=== PATIENT | female | born 1970 | race African-American/Black ===

== ENCOUNTER 2021-04-23 13:24 | Inpatient (IN) | payer BC, MEDICAID ==
[~2021-04-23] VITALS: Ht 162 cm; Wt 84.9 kg
[2021-04-23 13:55] VITALS: BP 130/74
[2021-04-23] MEDS: KETOROLAC 30MG/ML VIAL IV PRN (16:22)
[2021-04-23] MEDS ORDERED: ACETAMINOPHEN 325MG TABLET PO PRN (17:45)
[2021-04-23] MEDS ORDERED: ACETAMINOPHEN 650MG SUPP PR PRN (17:45)
[2021-04-23] MEDS ORDERED: TRAMADOL 50MG TABLET PO PRN (18:15)
[2021-04-23] MEDS: FERROUS SULFATE 325MG TABLET PO SCH (18:20)
[2021-04-23 20:00] VITALS: BP 102/60
[2021-04-23] MEDS: OXYCODONE HCL/ACETAMINOPHEN 5/325MG TABLET PO PRN (20:27)
[2021-04-23] MEDS: DOXAZOSIN MESYLATE 2MG TABLET PO SCH (21:00)
[2021-04-23] MEDS: POLYETHYLENE GLYCOL 3350 (17GM) 1 DOSE PACK PO SCH (21:00)
[2021-04-23] MEDS: GABAPENTIN 300MG CAPSULE PO SCH (21:23)
[2021-04-24] VITALS (25 sets, daily range): BP systolic 90–147; BP diastolic 55–102
[2021-04-24] MEDS: OXYCODONE HCL/ACETAMINOPHEN 5/325MG TABLET PO PRN ×2 (03:13→18:28)
[2021-04-24] MEDS: KETOROLAC 30MG/ML VIAL IV PRN ×5 (03:24→18:40)
[2021-04-24] MEDS: GABAPENTIN 300MG CAPSULE PO SCH ×3 (05:58→21:27)
[2021-04-24] MEDS: FERROUS SULFATE 325MG TABLET PO SCH ×3 (07:50→18:27)
[2021-04-24] MEDS ORDERED: LIDOCAINE HCL 1% 20ML VIAL (Pyxis) INJ ONE (08:50)
[2021-04-24] MEDS ORDERED: HEPARIN SODIUM 1,000 UNIT/1ML VIAL IV ONE (08:50)
[2021-04-24] MEDS ORDERED: BACITRACIN 15GM TUBE TOP ONE (08:50)
[2021-04-24] MEDS ORDERED: THROMBIN (BOVINE) 5000 UNITS/VIAL TOP ONE (08:51)
[2021-04-24] MEDS ORDERED: POLYMYXIN B SULFATE 500000 UNITS/VIAL ONE (08:51)
[2021-04-24] MEDS ORDERED: BUPIVACAINE HCL/PF 0.5% (5MG/ML) 10ML ONE (08:51)
[2021-04-24] MEDS ORDERED: ENOXAPARIN 40MG/0.4ML SYR SUBCUT SCH (09:00)
[2021-04-24] MEDS: ASCORBIC ACID 500 MG TABLET PO SCH (09:00)
[2021-04-24] MEDS ORDERED: CLOPIDOGREL 75MG TABLET PO SCH (09:00)
[2021-04-24] MEDS: DOCUSATE SODIUM 100MG CAPSULE PO SCH ×3 (09:00→18:27)
[2021-04-24] MEDS ORDERED: ASPIRIN 81MG EC TABLET PO SCH (09:00)
[2021-04-24] MEDS: POLYETHYLENE GLYCOL 3350 (17GM) 1 DOSE PACK PO SCH (09:00)
[2021-04-24 11:15] LABS: PARTIAL THROMBOPLASTIN TIME 26.3 sec (23.4-31.0); PROTHROMBIN TIME 11.2 sec (9.6-11.0)
[2021-04-24] MEDS ORDERED: ROCURONIUM BROMIDE 10MG/ML VIAL 5ML IV ONE (12:13)
[2021-04-24] MEDS ORDERED: PROPOFOL 200MG/20ML VIAL IV ONE (12:13)
[2021-04-24] MEDS ORDERED: MIDAZOLAM HCL 2 MG/2 ML VIAL ONE (12:13)
[2021-04-24] MEDS ORDERED: FENTANYL CITRATE/PF 50MCG/ML 2ML VIAL ONE (12:13)
[2021-04-24] MEDS ORDERED: LIDOCAINE HCL/PF 1% 10 MG/ML 5ML VIAL ONE (12:14)
[2021-04-24] MEDS ORDERED: NICARDIPINE 40MG/200ML PREMIX 200 ML IV PRN (12:15)
[2021-04-24] MEDS ORDERED: NEOSTIGMINE METHYLSULFATE 1MG/ML 10 ML VIAL ONE (12:45)
[2021-04-24] MEDS ORDERED: GLYCOPYRROLATE 0.2 MG/ML 2ML VIAL ONE (12:45)
[2021-04-24] MEDS ORDERED: CEFAZOLIN SODIUM 1000MG/VIAL ONE (12:45)
[2021-04-24] MEDS ORDERED: HEPARIN 1000 UNITS/ML 10ML ONE (13:23)
[2021-04-24] MEDS ORDERED: NICARDIPINE 50 MG in SODIUM CHLORIDE 0.9% 250 ML IV PRN (13:45)
[2021-04-24] MEDS: MORPHINE SULFATE 4 MG/ML CPJ (NOT FOR IM USE) IV PRN ×2 (14:36→21:45)
[2021-04-24] MEDS ORDERED: IPRATROPIUM/ALBUTEROL 0.5-3(2.5)MG/3ML NEB HHN PRN (16:15)
[2021-04-24] MEDS: DOXAZOSIN MESYLATE 2MG TABLET PO SCH (21:28)
[2021-04-25] VITALS (43 sets, daily range): BP systolic 93–139; BP diastolic 58–94
[2021-04-25] MEDS: MORPHINE SULFATE 4 MG/ML CPJ (NOT FOR IM USE) IV PRN ×4 (01:42→20:15)
[2021-04-25] MEDS: GABAPENTIN 300MG CAPSULE PO SCH ×3 (05:35→21:09)
[2021-04-25 05:43] LABS: CHLORIDE 106 mEq/L (98-107)
[2021-04-25 05:45] LABS: BASOPHILS % 0.2 % (0.0-2.0); EOSINOPHILS % 0.9 % (0.0-5.0); HEMATOCRIT. 33.4 % (36.0-48.0); HEMOGLOBIN. 10.8 g/dL (12.0-16.0); LYMPHOCYTES % 30.4 % (20.0-50.0); MEAN CORPUSCULAR HEMOGLOBIN 30.4 pg (28.0-32.0); MEAN CORPUSCULAR VOLUME 94.1 fL (81.0-99.0); MEAN PLATELET VOLUME 6.4 fl (7.4-10.4); MONOCYTES % 7.5 % (2.0-8.0); PLATELET 350 x1000/uL (130-400); RED BLOOD CELL COUNT 3.55 mill/uL (4.2-5.4); RED CELL DISTRIBUTION WIDTH 16.1 % (11.6-14.6)
[2021-04-25] MEDS: FERROUS SULFATE 325MG TABLET PO SCH ×3 (09:09→19:10)
[2021-04-25] MEDS: POLYETHYLENE GLYCOL 3350 (17GM) 1 DOSE PACK PO SCH (09:10)
[2021-04-25] MEDS: ASCORBIC ACID 500 MG TABLET PO SCH (09:10)
[2021-04-25] MEDS: DOCUSATE SODIUM 100MG CAPSULE PO SCH (17:28)
[2021-04-25] MEDS: DOXAZOSIN MESYLATE 2MG TABLET PO SCH (21:00)
[2021-04-26] VITALS: BP 102/67
[2021-04-26] MEDS: MORPHINE SULFATE 4 MG/ML CPJ (NOT FOR IM USE) IV PRN ×5 (01:37→20:05)
[2021-04-26] MEDS ORDERED: NON FORMULARY PATIENT HOME MED XX SCH (02:00)
[2021-04-26 04:00] VITALS: BP 111/73
[2021-04-26] MEDS: FERROUS SULFATE 325MG TABLET PO SCH ×3 (06:48→16:11)
[2021-04-26] MEDS: GABAPENTIN 300MG CAPSULE PO SCH ×3 (06:49→22:06)
[2021-04-26 08:00] VITALS: BP 104/76
[2021-04-26] MEDS: ASCORBIC ACID 500 MG TABLET PO SCH (08:33)
[2021-04-26] MEDS: DOCUSATE SODIUM 100MG CAPSULE PO SCH ×2 (08:33→16:11)
[2021-04-26] MEDS: POLYETHYLENE GLYCOL 3350 (17GM) 1 DOSE PACK PO SCH (08:33)
[2021-04-26 12:00] VITALS: BP 114/68
[2021-04-26 16:00] VITALS: BP 106/76
[2021-04-26 20:26] VITALS: BP 99/58
[2021-04-26] MEDS: DOXAZOSIN MESYLATE 2MG TABLET PO SCH (21:00)
[2021-04-27 00:05] VITALS: BP 118/78
[2021-04-27] MEDS: MORPHINE SULFATE 4 MG/ML CPJ (NOT FOR IM USE) IV PRN ×6 (01:16→22:15)
[2021-04-27 04:00] VITALS: BP 121/84
[2021-04-27] MEDS: GABAPENTIN 300MG CAPSULE PO SCH ×3 (06:14→22:13)
[2021-04-27] MEDS: FERROUS SULFATE 325MG TABLET PO SCH ×3 (06:15→17:51)
[2021-04-27 08:00] VITALS: BP 107/69
[2021-04-27] MEDS: DOCUSATE SODIUM 100MG CAPSULE PO SCH ×2 (08:05→17:51)
[2021-04-27] MEDS: POLYETHYLENE GLYCOL 3350 (17GM) 1 DOSE PACK PO SCH (08:05)
[2021-04-27] MEDS: ASCORBIC ACID 500 MG TABLET PO SCH (08:06)
[2021-04-27] MEDS: OXYCODONE HCL/ACETAMINOPHEN 5/325MG TABLET PO PRN ×2 (10:44→14:53)
[2021-04-27 12:00] VITALS: BP 126/83
[2021-04-27 16:00] VITALS: BP 115/67
[2021-04-27 20:00] VITALS: BP 117/69
[2021-04-27] MEDS: DOXAZOSIN MESYLATE 2MG TABLET PO SCH (22:13)
[2021-04-28] VITALS (8 sets, daily range): BP systolic 98–120; BP diastolic 59–84
[2021-04-28] MEDS: MORPHINE SULFATE 4 MG/ML CPJ (NOT FOR IM USE) IV PRN ×4 (03:50→23:25)
[2021-04-28] MEDS: GABAPENTIN 300MG CAPSULE PO SCH ×3 (06:48→21:05)
[2021-04-28] MEDS: FERROUS SULFATE 325MG TABLET PO SCH ×3 (09:13→16:23)
[2021-04-28] MEDS: CLOPIDOGREL 75MG TABLET PO SCH (09:13)
[2021-04-28] MEDS: DOCUSATE SODIUM 100MG CAPSULE PO SCH ×2 (09:13→16:23)
[2021-04-28] MEDS: POLYETHYLENE GLYCOL 3350 (17GM) 1 DOSE PACK PO SCH (09:13)
[2021-04-28] MEDS: ASCORBIC ACID 500 MG TABLET PO SCH (09:13)
[2021-04-28] MEDS: OXYCODONE HCL/ACETAMINOPHEN 5/325MG TABLET PO PRN ×3 (09:23→20:24)
[2021-04-28] MEDS: LACTULOSE 20G/30ML UDC PO SCH ×3 (14:20→20:23)
[2021-04-28] MEDS: DOXAZOSIN MESYLATE 2MG TABLET PO SCH (20:23)
[2021-04-29] VITALS: BP 104/67
[2021-04-29] MEDS: MORPHINE SULFATE 4 MG/ML CPJ (NOT FOR IM USE) IV PRN ×6 (03:00→21:22)
[2021-04-29 04:00] VITALS: BP 103/73
[2021-04-29] MEDS: OXYCODONE HCL/ACETAMINOPHEN 5/325MG TABLET PO PRN (04:10)
[2021-04-29] MEDS: GABAPENTIN 300MG CAPSULE PO SCH ×3 (06:13→21:21)
[2021-04-29] MEDS: FERROUS SULFATE 325MG TABLET PO SCH ×3 (06:32→18:03)
[2021-04-29 08:00] VITALS: BP 106/71
[2021-04-29] MEDS ORDERED: NA PHOS,M-B/NA PHOS,DI-BA ENEMA 118ML PR NR (08:45)
[2021-04-29] MEDS ORDERED: NA PHOS,M-B/NA PHOS,DI-BA ENEMA 118ML PR PRN (08:45)
[2021-04-29] MEDS: POLYETHYLENE GLYCOL 3350 (17GM) 1 DOSE PACK PO SCH (08:52)
[2021-04-29] MEDS: ASCORBIC ACID 500 MG TABLET PO SCH (08:53)
[2021-04-29] MEDS: DOCUSATE SODIUM 100MG CAPSULE PO SCH ×2 (08:53→18:03)
[2021-04-29] MEDS: CLOPIDOGREL 75MG TABLET PO SCH (08:53)
[2021-04-29 12:00] VITALS: BP 109/69
[2021-04-29 16:00] VITALS: BP 91/54
[2021-04-29 20:00] VITALS: BP 106/63
[2021-04-29] MEDS: DOXAZOSIN MESYLATE 2MG TABLET PO SCH (21:00)
[2021-04-30] VITALS: BP 102/62
[2021-04-30] MEDS: MORPHINE SULFATE 4 MG/ML CPJ (NOT FOR IM USE) IV PRN ×2 (01:31→05:09)
[2021-04-30] MEDS: GABAPENTIN 300MG CAPSULE PO SCH ×3 (05:10→21:02)
[2021-04-30] MEDS: FERROUS SULFATE 325MG TABLET PO SCH ×3 (06:43→16:18)
[2021-04-30 08:00] VITALS: BP 99/62
[2021-04-30] MEDS: CLOPIDOGREL 75MG TABLET PO SCH (10:19)
[2021-04-30] MEDS: POLYETHYLENE GLYCOL 3350 (17GM) 1 DOSE PACK PO SCH (10:19)
[2021-04-30] MEDS: ASCORBIC ACID 500 MG TABLET PO SCH (10:19)
[2021-04-30] MEDS: DOCUSATE SODIUM 100MG CAPSULE PO SCH ×2 (10:19→16:18)
[2021-04-30] MEDS: OXYCODONE HCL/ACETAMINOPHEN 5/325MG TABLET PO PRN ×3 (10:20→18:53)
[2021-04-30 11:57] VITALS: BP 115/72
[2021-04-30 16:00] VITALS: BP 108/73
[2021-04-30 20:00] VITALS: BP 131/81
[2021-04-30] MEDS: DOXAZOSIN MESYLATE 2MG TABLET PO SCH (21:02)
[2021-05-01] VITALS: BP 123/79
[2021-05-01] MEDS: OXYCODONE HCL/ACETAMINOPHEN 5/325MG TABLET PO PRN ×3 (00:31→21:42)
[2021-05-01] MEDS: MORPHINE SULFATE 4 MG/ML CPJ (NOT FOR IM USE) IV PRN ×4 (03:15→22:24)
[2021-05-01 04:00] VITALS: BP 137/76
[2021-05-01] MEDS: GABAPENTIN 300MG CAPSULE PO SCH ×3 (06:27→21:37)
[2021-05-01] MEDS: FERROUS SULFATE 325MG TABLET PO SCH ×3 (06:27→17:51)
[2021-05-01 08:00] VITALS: BP 123/82
[2021-05-01] MEDS: CLOPIDOGREL 75MG TABLET PO SCH (08:47)
[2021-05-01] MEDS: ASCORBIC ACID 500 MG TABLET PO SCH (08:47)
[2021-05-01] MEDS: POLYETHYLENE GLYCOL 3350 (17GM) 1 DOSE PACK PO SCH (08:47)
[2021-05-01] MEDS: DOCUSATE SODIUM 100MG CAPSULE PO SCH ×2 (08:47→17:51)
[2021-05-01 12:00] VITALS: BP 126/80
[2021-05-01 16:00] VITALS: BP 120/84
[2021-05-01 20:00] VITALS: BP 132/89
[2021-05-01] MEDS: DOXAZOSIN MESYLATE 2MG TABLET PO SCH (21:37)
[2021-05-02] VITALS: BP 129/85
[2021-05-02 04:00] VITALS: BP 116/77
[2021-05-02] MEDS: OXYCODONE HCL/ACETAMINOPHEN 5/325MG TABLET PO PRN ×4 (05:32→18:02)
[2021-05-02] MEDS: FERROUS SULFATE 325MG TABLET PO SCH ×3 (06:18→17:41)
[2021-05-02] MEDS: GABAPENTIN 300MG CAPSULE PO SCH ×3 (06:18→21:26)
[2021-05-02 08:00] VITALS: BP 127/78
[2021-05-02] MEDS: CLOPIDOGREL 75MG TABLET PO SCH (09:05)
[2021-05-02] MEDS: POLYETHYLENE GLYCOL 3350 (17GM) 1 DOSE PACK PO SCH (09:05)
[2021-05-02] MEDS: DOCUSATE SODIUM 100MG CAPSULE PO SCH ×2 (09:05→17:41)
[2021-05-02] MEDS: ASCORBIC ACID 500 MG TABLET PO SCH (09:05)
[2021-05-02 12:00] VITALS: BP 115/87
[2021-05-02] MEDS: LACTULOSE 20G/30ML UDC PO SCH ×3 (14:52→21:27)
[2021-05-02 16:00] VITALS: BP 112/76
[2021-05-02 20:00] VITALS: BP 114/67
[2021-05-02] MEDS: DOXAZOSIN MESYLATE 2MG TABLET PO SCH (21:26)
[2021-05-03] VITALS: BP 120/85
[2021-05-03 04:00] VITALS: BP 125/83
[2021-05-03] MEDS: OXYCODONE HCL/ACETAMINOPHEN 5/325MG TABLET PO PRN ×3 (04:40→21:41)
[2021-05-03] MEDS: GABAPENTIN 300MG CAPSULE PO SCH ×3 (06:09→21:40)
[2021-05-03] MEDS: FERROUS SULFATE 325MG TABLET PO SCH ×3 (06:09→16:39)
[2021-05-03 08:00] VITALS: BP 110/72
[2021-05-03] MEDS: ASCORBIC ACID 500 MG TABLET PO SCH (10:14)
[2021-05-03] MEDS: POLYETHYLENE GLYCOL 3350 (17GM) 1 DOSE PACK PO SCH (10:15)
[2021-05-03] MEDS: DOCUSATE SODIUM 100MG CAPSULE PO SCH ×2 (10:15→16:39)
[2021-05-03] MEDS: CLOPIDOGREL 75MG TABLET PO SCH (10:15)
[2021-05-03 12:00] VITALS: BP 130/87
[2021-05-03 16:00] VITALS: BP 123/82
[2021-05-03 20:00] VITALS: BP 136/93
[2021-05-03] MEDS: DOXAZOSIN MESYLATE 2MG TABLET PO SCH (21:40)
[2021-05-04] VITALS: BP 118/78
[2021-05-04] MEDS: OXYCODONE HCL/ACETAMINOPHEN 5/325MG TABLET PO PRN ×4 (02:14→22:24)
[2021-05-04 04:00] VITALS: BP 126/85
[2021-05-04] MEDS: FERROUS SULFATE 325MG TABLET PO SCH ×3 (06:30→16:52)
[2021-05-04] MEDS: GABAPENTIN 300MG CAPSULE PO SCH ×3 (06:30→21:15)
[2021-05-04 08:00] VITALS: BP 113/83
[2021-05-04] MEDS: DOCUSATE SODIUM 100MG CAPSULE PO SCH ×2 (09:10→16:52)
[2021-05-04] MEDS: POLYETHYLENE GLYCOL 3350 (17GM) 1 DOSE PACK PO SCH (09:10)
[2021-05-04] MEDS: CLOPIDOGREL 75MG TABLET PO SCH (09:10)
[2021-05-04] MEDS: ASCORBIC ACID 500 MG TABLET PO SCH (09:10)
[2021-05-04 12:00] VITALS: BP 123/85
[2021-05-04 16:30] VITALS: BP 126/88
[2021-05-04 20:00] VITALS: BP 124/83
[2021-05-04] MEDS: DOXAZOSIN MESYLATE 2MG TABLET PO SCH (21:16)
[2021-05-05] VITALS: BP 118/75
[2021-05-05 04:00] VITALS: BP 130/75
[2021-05-05] MEDS: GABAPENTIN 300MG CAPSULE PO SCH ×2 (05:25→14:23)
[2021-05-05] MEDS: FERROUS SULFATE 325MG TABLET PO SCH ×3 (06:23→18:07)
[2021-05-05 07:06] LABS: CHLORIDE 106 mEq/L (98-107)
[2021-05-05 07:08] LABS: BASOPHILS % 0.3 % (0.0-2.0); EOSINOPHILS % 3.1 % (0.0-5.0); HEMATOCRIT. 30.5 % (36.0-48.0); HEMOGLOBIN. 10.6 g/dL (12.0-16.0); LYMPHOCYTES % 33.6 % (20.0-50.0); MEAN CORPUSCULAR VOLUME 92.4 fL (81.0-99.0); MEAN PLATELET VOLUME 6.7 fl (7.4-10.4); MONOCYTES % 8.2 % (2.0-8.0); NEUTROPHILS % 54.8 % (40.0-76.0); PLATELET 242 x1000/uL (130-400); RED CELL DISTRIBUTION WIDTH 15.9 % (11.6-14.6)
[2021-05-05] MEDS: POLYETHYLENE GLYCOL 3350 (17GM) 1 DOSE PACK PO SCH ×2 (09:00→09:02)
[2021-05-05] MEDS: DOCUSATE SODIUM 100MG CAPSULE PO SCH ×3 (09:00→17:00)
[2021-05-05] MEDS: ASCORBIC ACID 500 MG TABLET PO SCH (09:02)
[2021-05-05] MEDS: CLOPIDOGREL 75MG TABLET PO SCH (09:02)
[2021-05-05] MEDS: OXYCODONE HCL/ACETAMINOPHEN 5/325MG TABLET PO PRN ×2 (09:05→18:07)
[2021-05-05 12:00] VITALS: BP 112/62
[2021-05-05 14:32] VITALS: BP 110/71
[2021-05-05 18:07] VITALS: BP 120/72
== END 2021-05-05 20:32 | DRG 37 ==
LOC: 6EST 13:24 → CVICU 04-24 13:35 → 5WST 04-25 21:55
PROVIDERS: ADMIT Hospitalist; ATTEND Hospitalist
PROC: 03CH0ZZ Extirpation of Matter from Right Common Carotid Artery, Open Approach (ICD-10-PCS; principal; 2021-04-24)
PROC: 03CK0ZZ Extirpation of Matter from Right Internal Carotid Artery, Open Approach (ICD-10-PCS; 2021-04-24)
DX: I63.511 Cerebral infarction due to unspecified occlusion or stenosis of right middle cerebral artery (principal); I77.71 Dissection of carotid artery; E44.0 Moderate protein-calorie malnutrition; R41.4 Neurologic neglect syndrome; G81.94 Hemiplegia, unspecified affecting left nondominant side; N39.0 Urinary tract infection, site not specified; I65.21 Occlusion and stenosis of right carotid artery; D50.9 Iron deficiency anemia, unspecified; I10 Essential (primary) hypertension; E78.5 Hyperlipidemia, unspecified; F12.10 Cannabis abuse, uncomplicated; F14.10 Cocaine abuse, uncomplicated; F17.210 Nicotine dependence, cigarettes, uncomplicated; R13.10 Dysphagia, unspecified; R47.1 Dysarthria and anarthria; R74.01 Elevation of levels of liver transaminase levels; R53.81 Other malaise; S00.83XA Contusion of other part of head, initial encounter; G89.0 Central pain syndrome; R29.810 Facial weakness; Z20.822 Contact with and (suspected) exposure to COVID-19; Z82.49 Family history of ischemic heart disease and other diseases of the circulatory system; Z86.711 Personal history of pulmonary embolism; Z95.828 Presence of other vascular implants and grafts; Y08.89XA Assault by other specified means, initial encounter; Y93.89 Activity, other specified; Y92.89 Other specified places as the place of occurrence of the external cause; Y99.8 Other external cause status; Z68.32 Body mass index [BMI] 32.0-32.9, adult
CPT/HCPCS: 36415; 80048; 82962; 85025; 86850; 86900; 86920; 87426; 88304; 92523; 92610; 93005; 97110; 97112; 97162; 97166; 97530; 97535; C1893; J0690; J1642; J1644; J1885; J2250; J2270; J2704; J2710; J3010; J3490; J7030; A4315

== ENCOUNTER 2021-12-18 14:23 | Emergency (ER) | payer BC ==
[~2021-12-18] VITALS: Ht 162.6 cm; Wt 100.0 kg
[2021-12-18 15:35] VITALS: BP 99/65
== END 2021-12-18 20:53 | disposition home or self-care (01) ==
LOC: ER 14:23
DX: Z04.89 Encounter for examination and observation for other specified reasons (principal); I10 Essential (primary) hypertension; Z86.73 Personal history of transient ischemic attack (TIA), and cerebral infarction without residual deficits
CPT/HCPCS: 99283

== ENCOUNTER 2025-10-20 20:57 | Emergency (ER) | payer BC ==
[~2025-10-20] VITALS: Ht 162.6 cm; Wt 176.0 kg
[2025-10-20 21:19] VITALS: O2SAT 97
[2025-10-21] MEDS ORDERED: NYST15CR31 TP (01:03)
[2025-10-21] MEDS ORDERED: FLUCONAZOLE 100MG TABLET PO ONE (01:15)
[2025-10-21 01:58] VITALS: BP 148/95; PULSE 100; RESP 20; TEMP 36.4; O2SAT 97
[2025-10-21] MEDS: FLUCONAZOLE 150MG TABLET PO NR (02:12)
== END 2025-10-21 02:00 ==
LOC: ER 20:57
DX: L22 Diaper dermatitis (principal); I10 Essential (primary) hypertension; F14.10 Cocaine abuse, uncomplicated
CPT/HCPCS: 99283